=== PATIENT | female | born 1995 | race Caucasian/White ===

== ENCOUNTER 2018-08-06 14:03 | Emergency (ER) | payer BC ==
[2018-08-06 14:52] VITALS: BP 107/73
[2018-08-06] MEDS ORDERED: IBUPROFEN 600 MG TABLET PO ONE (15:37)
[2018-08-06] MEDS ORDERED: MORPHINE SULFATE 10 MG/ML INJ IM ONE (15:37)
[2018-08-06] MEDS ORDERED: ACETAMINOPHEN 325 MG TABLET PO ONE (15:37)
[2018-08-06] MEDS ORDERED: PENICILLIN V POTASSIUM 500 MG TABLET PO ONE (15:38)
--- NOTE | 2018-08-06 15:49 | ER Document Report ---
ED General - General Chief Complaint: Toothache Stated Complaint: TOOTHPAIN Time Seen by Provider: 08/06/18 15:06 Mode of Arrival: Ambulatory Information source: Patient Notes: 23-year-old female with scoliosis presents with complaint of left lower tooth pain that started 3 days prior to arrival. Patient states that she has had a fracture of that tooth for some time and it intermittently flares up. She denies any fever, chills, difficulty swallowing, ear pain, sore throat, tongue swelling. Patient has had prior similar symptoms on the right side of her mouth which required extraction. Patient placed dental paste yesterday which is still in place and covering the root of the tooth. TRAVEL OUTSIDE OF THE [place] IN LAST 30 DAYS: No - HPI Onset: Other Onset/Duration: Gradual, Persistent Quality of pain: Throbbing Severity: Moderate Associated symptoms: denies: Drooling, Earache, Fever, Nausea, Vomiting, Shortness of breath, Sore throat Exacerbated by: Denies Relieved by: Denies Similar symptoms previously: Yes Recently seen / treated by doctor: No - Related Data Allergies/Adverse Reactions: No Known Allergies Allergy (Verified 08/06/18 14:08) Past Medical History - General Information source: Patient - Social History Smoking Status: Current Every Day Smoker Chew tobacco use (# tins/day): No Frequency of alcohol use: None Drug Abuse: None Family History: Reviewed & Not Pertinent Patient has suicidal ideation: No Patient has homicidal ideation: No Renal/ Medical History: Denies: Hx Peritoneal Dialysis Musculoskeletal Medical History: Reports Other - Scoliosis - Immunizations Hx Diphtheria, Pertussis, Tetanus Vaccination: Yes Review of Systems - Review of Systems Notes: REVIEW OF SYSTEMS: CONSTITUTIONAL : Denies fever, chills, or sweats. Denies recent illness. Denies weight loss, recent hospitalizations. EENT: Denies visual changes, eye pain. Denies sore throat, oral lesions, difficulty swallowing. CARDIOVASCULAR: Denies chest pain. Denies palpitations. Denies lower extremity edema. RESPIRATORY: Denies cough. Denies shortness of breath, wheezing. GASTROINTESTINAL: Denies abdominal pain or distention. Denies nausea, vomiting, or diarrhea. Denies blood in vomitus, stools, or per rectum. Denies black, tarry stools. Denies constipation. GENITOURINARY: Denies difficulty urinating, painful urination, frequency, blood in urine, or vaginal discharge. MUSCULOSKELETAL: Denies back or neck pain or stiffness. Denies joint pain or swelling. SKIN: Denies rash, lesions or sores. HEMATOLOGIC : Denies easy bruising or bleeding. LYMPHATIC: Denies swollen glands. NEUROLOGICAL: Denies confusion or altered mental status. Denies loss of consciousness. Denies dizziness or lightheadedness. Denies headache. Denies weakness or paralysis. Denies problems difficulty with ambulation, slurred speech. Denies sensory loss, numbness, or tingling. Denies seizures. PSYCHIATRIC: Denies anxiety or stress. Denies depression, suicidal ideation, or homicidal ideation. Denies visual or auditory hallucinations. PHYSICAL EXAMINATION: GENERAL: Well-appearing, well-nourished and in no acute distress. HEAD: Atraumatic, normocephalic. EYES: Pupils equal round and reactive to light, extraocular movements intact, conjunctiva are normal. ENT: Nares patent, oropharynx clear without exudates. Moist mucous membranes. #17 tooth covered in dental paste. No associated apical abscess. No sublingual edema, lymphadenopathy. NECK: Normal range of motion, supple without lymphadenopathy LUNGS: Breath sounds clear to auscultation bilaterally and equal. No wheezes rales or rhonchi. HEART: Regular rate and rhythm without murmurs ABDOMEN: Soft, nontender, nondistended abdomen. No guarding, no rebound. No masses appreciated. Female : deferred Musculoskeletal: Normal range of motion, no pitting or edema. No cyanosis. NEUROLOGICAL: Cranial nerves grossly intact. Normal speech, normal gait. Normal sensory, motor exams PSYCH: Normal mood, normal affect. SKIN: Warm, Dry, normal turgor, no rashes or lesions noted. Physical Exam - Vital signs Vitals: Temp Pulse Resp BP Pulse Ox 98.6 F 80 18 107/73 98 08/06/18 14:50 08/06/18 14:50 08/06/18 14:50 08/06/18 14:50 08/06/18 14:50 Course - Re-evaluation Re-evalutation: 08/06/18 17:10 Presentation is most consistent with likely an infected tooth. Airway is patent. Vitals within normal limits. Patient is able swallow without any difficulty. There is no significant facial swelling. No evidence of Srinivas angina, apical abscess, or airway obstruction. Patient will be started on antibiotics. I've instructed to follow-up with dentistry as earliest ability for definitive management. At this time will discharge with return precautions and follow-up recommendations. Verbal discharge instructions given a the bedside and opportunity for questions given. Medication warnings reviewed. Patient is in agreement with this plan and has verbalized understanding of return precautions and the need for primary care follow-up in the next 24-72 hours. - Vital Signs Vital signs: Temp Pulse Resp BP Pulse Ox 98.6 F 80 18 107/73 98 08/06/18 14:50 08/06/18 14:50 08/06/18 14:50 08/06/18 14:50 08/06/18 14:50 Discharge - Discharge Clinical Impression: Tooth pain Tooth fracture Qualifiers: Encounter type: initial encounter Fracture type: closed Qualified Code(s): S02.5XXA - Fracture of tooth (traumatic), initial encounter for closed fracture Condition: Good Disposition: HOME, SELF-CARE Instructions: Penicillin V K (OM), Toothache (OM) Additional Instructions: You have been seen for dental pain. It is very important that you follow-up with a dentist for definitive care. Please return if you develop fever greater than 101, swelling in your face, vomiting, difficulty breathing or swallowing, or any other symptoms that are concerning to you. For pain you should take ibuprofen 600 mg every 6 hours as needed. There are some dental clinics at reduced rate. However are not in town and require travel. In [place]: [facility] will be opening a free dental clinic. Phone: In [place]: 1.[facility] (60 miles away) [address] [facility] [phone] [facility] For appointments, call on Mondays between the hours of 9 AM and noon. 2. [facility] (60 miles) [address] [facility] [phone] extension [phone] In [place]: [facility] (42 miles away) [address] [place] [address] In [facility] (53 miles away) [address] [place], [place] [phone] In [facility] (173 miles away) [address] [place] [address] [email or web address] Prescriptions: Naproxen [Naprosyn] 500 mg PO BID #20 tablet Penicillin V Potassium [Penicillin Vk 500 mg Tablet] 500 mg PO BID #20 tablet Forms: Smoking Cessation Education, Return to Work
== END 2018-08-06 16:05 | disposition home or self-care (01) ==
LOC: ER 14:03
DX: S02.5XXA Fracture of tooth (traumatic), initial encounter for closed fracture (principal); K08.89 Other specified disorders of teeth and supporting structures; X58.XXXA Exposure to other specified factors, initial encounter; F17.200 Nicotine dependence, unspecified, uncomplicated
CPT/HCPCS: 99283; 96372; J2270

== ENCOUNTER 2019-05-11 05:29 | Day surgery (SDC) | payer BC, MEDICAID ==
[2019-05-11 06:06] LABS: ABSOLUTE BASOPHILS # (AUTO) 0.1 10^3/uL (0.0-0.2); ABSOLUTE EOSINOPHILS # (AUTO) 0.2 10^3/uL (0.0-0.6); ABSOLUTE MONOCYTES (AUTO) 0.9 10^3/uL (0.1-1.4); ABSOLUTE NEUT (AUTO) 7.1 10^3/uL (1.7-8.2); BASOPHILS % (AUTO) 0.8 % (0-2); EOSINOPHILS % (AUTO) 1.4 % (0-6); HEMATOCRIT 37.4 % (36.0-47.0); HEMOGLOBIN 12.8 g/dL (12.0-15.5); LYMPHOCYTES % (AUTO) 32.7 % (13-45); MEAN CORPUSCULAR HGB CONC 34.3 g/dL (32.0-36.0); MEAN CORPUSCULAR VOLUME 93 fl (80-97); MONOCYTES % (AUTO) 7.2 % (3-13); PLATELET COUNT 267 10^3/uL (150-450); RED BLOOD COUNT 4.01 10^6/uL (3.72-5.28); RED CELL DISTRIBUTION WIDTH 13.4 % (11.5-14.0); SEGMENTED NEUTROPHILS % (AUTO) 57.9 % (42-78); TOTAL CELLS COUNTED % (AUTO) 100 %; WHITE BLOOD COUNT 12.2 10^3/uL (4.0-10.5)
[2019-05-11 06:17] LABS: APPEARANCE,URINE CLOUDY; BILIRUBIN,URINE NEGATIVE (NEGATIVE); COLOR,URINE YELLOW; GLUCOSE, URINE NEGATIVE (NEGATIVE); KETONES,URINE NEGATIVE (NEGATIVE); LEUKOCYTE ESTERASE,URINE SMALL (NEGATIVE); NITRITE,URINE NEGATIVE (NEGATIVE); PROTEIN,URINE 30 mg/dL (NEGATIVE); URINE SPECIFIC GRAVITY 1.024; UROBILINOGEN,URINE NEGATIVE mg/dL (<2.0)
[2019-05-11] MEDS ORDERED: MIDAZOLAM 2 MG/2 ML INJ ONE (06:35)
[2019-05-11] MEDS ORDERED: FENTANYL CITRATE INJ/PF 100 MCG/2 ML AMPUL ONE ×2 (06:35→07:13)
[2019-05-11] MEDS ORDERED: PROPOFOL INJ 200 MG/20 ML VIAL IV ONE (06:36)
[2019-05-11] MEDS ORDERED: LIDOCAINE 2% INJ (20 MG/ML) 20 ML MDV ONE (06:36)
[2019-05-11] MEDS ORDERED: FENTANYL CITRATE INJ/PF 100 MCG/2 ML AMPUL IV PRN ×3 (06:47)
[2019-05-11] MEDS ORDERED: OXYCODONE-ACETAMINOPHEN 5-325 MG TABLET PO PRN ×4 (06:47→08:05)
[2019-05-11] MEDS ORDERED: PROMETHAZINE HCL INJ 25 MG/1 ML VIAL IV PRN ×2 (06:47)
[2019-05-11] MEDS ORDERED: MEPERIDINE HCL/PF INJ 25 MG/1 ML DISP.SYRIN IV PRN (06:47)
[2019-05-11] MEDS ORDERED: DIPHENHYDRAMINE HCL 50 MG/ML VIAL IV PRN (06:47)
[2019-05-11] MEDS ORDERED: MISOPROSTOL 0.2 MG TABLET ONE (07:20)
[2019-05-11] MEDS ORDERED: KETOROLAC TROMETHAMINE INJ/PF 30 MG/1 ML SDV IV PRN (08:05)
[2019-05-11] MEDS ORDERED: IBUPROFEN 800 MG TABLET PO PRN (08:05)
[2019-05-11] MEDS ORDERED: RINGERS SOLUTION,LACTATED 1,000 ML IV PRN (08:05)
--- NOTE | 2019-05-11 08:11 | Operative Report ---
Operative Report DATE OF SURGERY: 05/11/19 PREOPERATIVE DIAGNOSIS: Missed AB POSTOPERATIVE DIAGNOSIS: Same OPERATION: Suction D&C SURGEON: SHANNAN NEWBERRY ANESTHESIA: GA TISSUE REMOVED OR ALTERED: Uterine contents COMPLICATIONS: None ESTIMATED BLOOD LOSS: 50 cc INTRAOPERATIVE FINDINGS: Uterine contents were passing through the cervix PROCEDURE: Patient was taken the OR and placed in supine position. General anesthesia was induced she is placed in dorsolithotomy position using Merrill stirrups. Her perineum and vagina were prepared and draped in sterile fashion. Her bladder was drained with a red rubber catheter. A weighted speculum was placed in the vagina. The products of conception were passing through the cervix. These were removed and sent for specimen. They were sent for fresh specimen as the patient desires chromosome analysis. The uterus sounded to 7 cm before and after the case. A gentle curettage was performed with a size 8 suction curette. There was a small return of tissue. All instruments were removed she is placed back in supine position taken recovery room in stable condition.
--- NOTE | 2019-05-11 08:14 | Discharge Summary ---
Discharge Summary (SDC) - Discharge Final Diagnosis: Missed Date of Surgery: 05/11/19 Discharge Date: 05/11/19 Condition: Good Prescriptions: Oxycodone HCl/Acetaminophen [Percocet 5-325 mg Tablet] 1 tab PO Q4HP PRN #15 tablet PRN Reason: Discharge Diet: Regular Discharge Activity: Activity As Tolerated, Pelvic Rest Report the Following to Your Physician Immediately: Fever over 101 Degrees, Unusual Bleeding
[2019-05-11] MEDS ORDERED: KETOROLAC TROMETHAMINE 60 MG/2 ML SDV ONE (08:19)
[2019-05-11 09:58] VITALS: BP 98/64
== END 2019-05-11 09:45 | disposition home or self-care (01) ==
LOC: OROUT 05:29
PROVIDERS: ATTEND Obstetrics & Gynecology
DX: O02.1 Missed abortion (principal); F17.210 Nicotine dependence, cigarettes, uncomplicated; R01.1 Cardiac murmur, unspecified
CPT/HCPCS: 86900; 86901; 36415; 86850; 85025; 81001; 88305 ×2; 01965; 59820; J2250; J3490; J1885; J3010; J2704; 1965